=== PATIENT | female | born 1965 | race American Indian/Alaskan Native ===

== ENCOUNTER 2016-09-04 11:58 | Outpatient (CLI) | payer OTHER ==
--- NOTE | 2016-09-04 14:24 | Ultrasound Report ---
Thyroid ultrasound: The right lobe measures 2.1 x 2.5 x 5.6 cm. There is a discrete nodule in the inferior pole measuring 2.2 cm in greatest dimension. It is sharply defined, isoechoic in its solid portion with an ovoid central cyst. In the mid lobe there is a well demarcated slightly inhomogeneously hypoechoic nodule measuring 1 cm. In the superior pole there is a 6.5 mm cyst. The left lobe measures 2.6 x 2.7 x 5.6 cm. In the mid lower pole there is a well defined, slightly elongated hypoechoic mass which is markedly heterogeneous with scattered small cysts interposed with scattered small solid islands of solid tissue. Minimal internal flow with color imaging. In the superior pole there is a 3.3 cm nodule comprised of a cystic component in the superior nodule and a complex component comprised of both solid and cystic tissue in the lower portion. No internal flow with color imaging. The isthmus has a thickness of 3.5 mm. No extrathyroidal masses identified. Impression: Minimally enlarged thyroid gland. Bilateral thyroid masses. None of the masses have any overtly suspicious characteristics. Recommendation: Clinical followup. Ultrasound followup recommended in 9-12 months to reevaluate any change in these masses.
== END 2016-09-04 11:59 | disposition home or self-care (01) ==
LOC: SPVWC 11:58
PROVIDERS: ATTEND Obstetrics & Gynecology
DX: E04.1 Nontoxic single thyroid nodule (principal)
CPT/HCPCS: 76536

== ENCOUNTER 2016-09-15 10:32 | Outpatient (CLI) | payer OTHER ==
--- NOTE | 2016-09-18 08:31 | Cat Scan Report ---
CT CHEST, ABDOMEN AND PELVIS WITH CONTRAST: 09/15/16 10:32:00 CLINICAL: Malignant neoplasm sigmoid colon. COMPARISON: 03/24/16 TECHNIQUE: Volumetric acquisition and 1.25 millimeter scan reconstructions after the uneventful intravenous injection of 100 cc of Omnipaque 300. Consent was obtained prior to the administration of the contrast. Oral contrast was also given. FINDINGS: Chest: The lungs are clear. No pulmonary nodule or mass. Normal aorta, heart and pulmonary arteries. Normal esophagus and trachea. No mediastinal or hilar lymphadenopathy.No axillary or supraclavicular lymphadenopathy. Abdomen: Normal liver and bile ducts status post cholecystectomy. Normal stomach, duodenum, pancreas and spleen. Normal adrenal glands and kidneys. The renal collecting systems and ureters are nondilated. Normal aorta and inferior vena cava. No lymphadenopathy.No ascites.Normal small bowel. Normal ascending, transverse and descending colon. An appendix is not identified. Pelvis: Normal urinary bladder and rectum.Small fibroid uterus. Ovaries are not identified. Normal sigmoid anastomosis. No adnexal mass or free fluid. No pelvic lymphadenopathy.. Bone windows demonstrate no suspicious bone lesion. Stable benign sclerotic lesion of the T10 vertebral body and right pedicle. IMPRESSION:Negative study with no evidence of disease recurrence or metastasis. Status post cholecystectomy and partial colectomy.
--- NOTE | 2016-09-19 08:56 | Mammography Report ---
BONE DENSITY STUDY: DEFINITIONS: BMD = Bone Mineral Density T-score = BMD related to mean peak bone mass of young adult (mean expressed in Standard Deviation) Z-score = Age matched BMD expressed in SD World Health Organization (WHO) Diagnostic Criteria Normal T-score > -1 SD Osteopenia T-score between -1 and -2.4 SD Osteoporosis T-score -2.5 SD or below FINDINGS: Comparison is made to this patient's prior study of December 2013. On the prior examination the 4 vertebral bodies that were imaged appear to be L2-5 rather than L1-4. When comparing L2-5 the average BMD currently is 0.947 with a T. value score of -1.8 compared to her prior exam which had a BMD of 1.012 and a T. value score of -1.3. When using L1-4 however the BMD is currently 0.957 with a T. value score of -1.8. The BMD of L4 is 0.891 with a T. value score of -2.5 which is a significant change from the same level on her prior exam with a BMD of 1.044 and a T. value score of -1.3. The average BMD of the left hip is 0.984 with a T. value score of -3. The femoral neck BMD is 0.874 with a T. value score of -0.5. Her prior average BMD was 0.998 with a T. value score of -0.2. Impression: There has been generalized mild decrease in the BMD of both spine and left hip compared to 2014. NOTE: BMD is not the only risk factor for fracture; also consider factors such as the patient's age, risk of falling, previous osteoporotic fracture, family history of osteoporotic fractures, current smoker, and low body weight. Gaston's triangle is a region of interest in femur, predominantly of trabecular bone. It is not a true anatomic site, and [facility] does not recommend its use clinically. RECOMMENDATION: Followup with referring physician.
== END 2016-09-15 10:33 | disposition home or self-care (01) ==
LOC: SPVIMAG 10:32
PROVIDERS: ATTEND Internal Medicine Hematology & Oncology
DX: C18.7 Malignant neoplasm of sigmoid colon (principal); Z79.52 Long term (current) use of systemic steroids
CPT/HCPCS: 71260; 74177; 77080; Q9967

== ENCOUNTER 2017-05-11 09:58 | Outpatient (CLI) | payer OTHER ==
--- NOTE | 2017-05-11 11:33 | XRay Report ---
LEFT WRIST, 4 views: HISTORY: Left wrist pain. Routine views demonstrate the carpal bones to be well mineralized with well preserved bony mineralization and interosseous joint spaces. The carpal and adjacent articular bones have normal contours. The surrounding soft tissues are unremarkable. IMPRESSION: Normal study.
== END 2017-05-11 09:59 | disposition home or self-care (01) ==
LOC: SPVIMAG 09:58
PROVIDERS: ATTEND Internal Medicine Hematology & Oncology
DX: M25.532 Pain in left wrist (principal); C18.7 Malignant neoplasm of sigmoid colon; F41.8 Other specified anxiety disorders

== ENCOUNTER 2020-03-31 06:21 | Outpatient (CLI) | payer OTHER ==
[2020-03-31 08:05] LABS: Blood Urea Nitrogen 13 mg/dL (7-17)
--- NOTE | 2020-03-31 09:13 | Cat Scan Report ---
CT chest w con INDICATION: C18.7Malignant neoplasm of sigmoid colon/HX OF COLON CA. TECHNIQUE: All CT scans at this location are performed using CT dose reduction for ALARA by means of automated e xposure control. COMPARISON: None available. FINDINGS: Right thyroid lobe is enlarged, with numerous nodules. Left thyroid lobe has apparently been resected . No mediastinal, hilar or axillary adenopathy. Slight increased density in the anterior mediastinum is consistent with residual thymic tissue. There are areas of mild parenchymal scarring in the left lower lobe, but I see no significant pulmona ry or pleural lesions. Images through the upper abdomen show hepatic steatosis. Sclerotic density in the right pedicle of T10 is worrisome for metastasis. No additional skeletal les ions. IMPRESSION: 1. Sclerotic lesion in the right pedicle of T10, worrisome for metastasis. 2. Enlarged right thyroid with thyroid nodules. This appears to have increased since a thyroid ultras ound in August 2016. Suggest repeat ultrasound as a first step in further evaluation. 3. Hepatic steatosis. 4. No intrathoracic disease. Signer Name: Bogdan Marcos MD Signed: 03/31/2020 9:08 AM Workstation Name: [id number]
--- NOTE | 2020-03-31 09:20 | Cat Scan Report ---
CT ABDOMEN AND PELVIS WITH CONTRAST HISTORY: C18.7Malignant neoplasm of sigmoid colon/PT W INCREASE L GROIN PA COMPARISON: None. TECHNIQUE: Axial CT images were obtained through the abdomen and pelvis after 100 cc of Omnipaque 300 intravenously. Sagittal and coronal reformatted images. All CT scans at this location are performed using CT dose reduction for ALARA by means of automated exposure control. FINDINGS: CT ABDOMEN: Lung Bases: Clear. Liver: Mild fatty change throughout the liver is unchanged. There are 2 tiny hypodensities in the rig ht hepatic lobe and adjacent to the IVC which are unchanged and probably represent tiny cysts. No tess picious liver mass is detected Biliary: Cholecystectomy. Spleen: No significant abnormality. Unenlarged. Pancreas: No significant abnormality. Adrenals: No significant abnormality. Kidneys: No significant abnormality. Lymphatics: No lymphadenopathy. Vasculature: No significant abnormality. Bowel/Peritoneum: Surgical suture line in the sigmoid colon is again noted and unremarkable. No obvio us recurrent GI mass, acute inflammation or obstruction. No free air. No free fluid. Normal appendix. CT PELVIS: : Mild uterine fibroid disease is stable. The adnexa and bladder are unremarkable. Osseous Structures: Stable 1.3 sclerotic bony lesion in T10 vertebral body which probably represents a large bone island. No suspicious bony lesion is detected. Additional Findings: None IMPRESSION: Stable findings since 09/15/2016 exam. No evidence for disease recurrence or metastasis. Signer Name: Adam Harris Jr, MD Signed: 03/31/2020 9:15 AM Workstation Name: [id number]
== END 2020-03-31 06:22 | disposition home or self-care (01) ==
LOC: CT 06:21
PROVIDERS: ATTEND Internal Medicine Hematology & Oncology
DX: C18.7 Malignant neoplasm of sigmoid colon (principal); K76.0 Fatty (change of) liver, not elsewhere classified; K57.30 Diverticulosis of large intestine without perforation or abscess without bleeding; D25.9 Leiomyoma of uterus, unspecified
CPT/HCPCS: 36415; 71260; 74177; 82565; 84520; J1642; Q9967